=== PATIENT | female | born 1985 | race Caucasian/White ===

== ENCOUNTER 2016-09-13 08:01 | Emergency (ER) | payer BC ==
--- NOTE | 2016-09-13 08:18 | UC ---
[facility] HPI - History of Current Complaint Chief Complaint: UCRespiratory Stated Complaint: THROAT,ACHY,EAR COMPLAINT Hx Last Menstrual Period: 09/09/16 - Allergies/Home Medications Allergies/Adverse Reactions: Allergies Allergy/AdvReac Type Severity Reaction Status Date / Time No Known Allergies Allergy Verified 09/13/16 08:08 Home Medications: Home Medications Acetaminophen [Acetaminophen Extra Stren] 1,000 mg PO Q4H PRN 09/13/16 [History Confirmed 09/13/16] PMH/Surg Hx/FS Hx/Imm Hx - Surgical History Surgical History: None - Social History Alcohol Use: Occasionally Substance Use Type: None Smoking Status (MU): Never Smoked Tobacco Physical Exam Vital Signs: Initial Vital Signs Temp 99.1 F 09/13/16 08:09 Pulse 100 09/13/16 08:09 Resp 16 09/13/16 08:09 BP 101/60 09/13/16 08:09 Pulse Ox 100 09/13/16 08:09
[2016-09-13 08:23] VITALS: BP 101/60
--- NOTE | 2016-09-13 08:26 | UC ---
Throat Pain/Nasal Jose Cruz HPI - HPI Summary HPI Summary: 31 yo female with sore throat that started last PM some aches some MCGEE mild cough and PND no f/c - History of Current Complaint Chief Complaint: UCRespiratory Stated Complaint: THROAT,ACHY,EAR COMPLAINT Time Seen by Provider: 09/13/16 08:25 Hx Obtained From: Patient Hx Last Menstrual Period: 09/09/16 Onset/Duration: Gradual Onset Severity: Mild Pain Intensity: 4 Pain Scale Used: 0-10 Numeric Cough: Nonproductive Related History: Prior ENT Surgery - Epiglottits Risk Factors Epiglottis Risk Factors: Negative - Allergies/Home Medications Allergies/Adverse Reactions: Allergies Allergy/AdvReac Type Severity Reaction Status Date / Time No Known Allergies Allergy Verified 09/13/16 08:08 Home Medications: Home Medications Acetaminophen [Acetaminophen Extra Stren] 1,000 mg PO Q4H PRN 09/13/16 [History Confirmed 09/13/16] PMH/Surg Hx/FS Hx/Imm Hx Previously Healthy: Yes - Surgical History Surgical History: None - Family History Known Family History: Negative: Cardiac Disease, Hypertension, Diabetes - Social History Alcohol Use: Occasionally Substance Use Type: None Smoking Status (MU): Never Smoked Tobacco Review of Systems Constitutional: Fatigue Skin: Negative Eyes: Negative ENT: Sore Throat Respiratory: Negative Cardiovascular: Negative Gastrointestinal: Negative Genitourinary: Negative Motor: Negative Neurovascular: Negative Musculoskeletal: Negative Neurological: Negative Psychological: Negative All Other Systems Reviewed And Are Negative: Yes Physical Exam Triage Information Reviewed: Yes Appearance: Well-Appearing, No Pain Distress, Well-Nourished Vital Signs: Initial Vital Signs Temp 99.1 F 09/13/16 08:09 Pulse 100 09/13/16 08:09 Resp 16 09/13/16 08:09 BP 101/60 09/13/16 08:09 Pulse Ox 100 09/13/16 08:09 Vital Signs Reviewed: Yes Eyes: Positive: Conjunctiva Clear ENT: Positive: Hearing grossly normal, Pharyngeal erythema, TMs normal. Negative: Nasal congestion, Nasal drainage, Tonsillar swelling, Tonsillar exudate, Trismus, Muffled/hoarse voice Neck: Positive: Supple, Nontender, Enlarged Nodes @ - ant cervical mildly enlarged Respiratory: Positive: Lungs clear, Normal breath sounds, No respiratory distress Cardiovascular: Positive: RRR, No Murmur Abdomen Description: Positive: Nontender Musculoskeletal: Positive: ROM Intact, No Edema Neurological: Positive: Alert Psychological Exam: Normal Skin Exam: Normal Throat Pain/Nasal Course/Dx - Course Course Of Treatment: RS (-). declines work excuse - Differential Dx/Diagnosis Provider Diagnoses: acute pharyngitis Discharge - Discharge Plan Condition: Stable Disposition: HOME Patient Education Materials: Pharyngitis (ED) Referrals: Non Staff,Doctor [Primary Care Provider] - Additional Instructions: STREP test (-) fluids rest tylenol or advil if needed recheck in 2 days if not better
== END 2016-09-13 08:41 | disposition home or self-care (01) ==
LOC: UCCORT 08:01
DX: J02.9 Acute pharyngitis, unspecified (principal); R53.83 Other fatigue
CPT/HCPCS: 87651; 99211; G0463

== ENCOUNTER 2016-09-17 19:09 | Emergency (ER) | payer BC ==
[2016-09-17 19:16] VITALS: BP 114/79
[2016-09-17] MEDS ORDERED: Azithromycin TAB* 250 MG PO ONE (19:50)
[2016-09-17] MEDS ORDERED: Benzonatate CAP* 100 MG PO ONE (19:51)
--- NOTE | 2016-09-17 20:21 | UC ---
Throat Pain/Nasal Jose Cruz HPI - HPI Summary HPI Summary: SEEN IN [facility] 09/13/16. HAD SORE THROAT AND COUGH AT THE TIME, STREP TEST NEGATIVE. TODAY RIGHT EAR PAIN AND PRESSURE, COUGH WORSENING, SINUS CONGESTION WORSENING. FEVERISH AT NIGHT. - History of Current Complaint Chief Complaint: UCEar Stated Complaint: SORE THROAT,COUGHING Time Seen by Provider: 09/17/16 19:41 Hx Obtained From: Patient Hx Last Menstrual Period: 09/09/16 Onset/Duration: Gradual Onset, Lasting Weeks, Still Present Severity: Moderate Cough: Productive Associated Signs & Symptoms: Positive: Hoarseness, Sinus Discomfort, Nasal Discharge, Fever - Epiglottits Risk Factors Epiglottis Risk Factors: Negative - Allergies/Home Medications Allergies/Adverse Reactions: Allergies Allergy/AdvReac Type Severity Reaction Status Date / Time No Known Allergies Allergy Verified 09/17/16 19:16 Home Medications: Home Medications Pseudoephedrine-Guaifenesin [Mucinex D 60-600 mg] 1 tab PO DAILY PRN 09/17/16 [ History Confirmed 09/17/16] PMH/Surg Hx/FS Hx/Imm Hx Previously Healthy: Yes - Surgical History Surgical History: Yes Surgery Procedure, Year, and Place: adenoidectomy, ear tubes as kid - Family History Known Family History: Negative: Cardiac Disease, Hypertension, Diabetes - Social History Occupation: Employed Full-time Lives: With Family Alcohol Use: Occasionally Substance Use Type: None Smoking Status (MU): Never Smoked Tobacco Review of Systems Constitutional: Fatigue Skin: Negative Eyes: Negative ENT: Sore Throat, Ear Ache, Nasal Discharge, Sinus Congestion Respiratory: Cough Cardiovascular: Negative Gastrointestinal: Negative Genitourinary: Negative Motor: Negative Neurovascular: Negative Musculoskeletal: Negative Neurological: Negative Psychological: Negative All Other Systems Reviewed And Are Negative: Yes Physical Exam Triage Information Reviewed: Yes Appearance: No Pain Distress, Well-Nourished, Ill-Appearing - MILDLY Vital Signs: Initial Vital Signs Temp 98.8 F 09/17/16 19:12 Pulse 107 09/17/16 19:12 Resp 16 09/17/16 19:12 BP 114/79 09/17/16 19:12 Pulse Ox 99 09/17/16 19:12 Vital Signs Reviewed: Yes Eye Exam: Normal ENT Exam: Normal ENT: Positive: Normal ENT inspection, Pharyngeal erythema, Nasal congestion, TM dull, TM red Dental Exam: Normal Neck exam: Normal Neck: Positive: Supple, Nontender, Enlarged Nodes @ - ANTERIOR CERVICAL LN BILATERAL Respiratory Exam: Other - COUGH Respiratory: Positive: Chest non-tender, Lungs clear, Normal breath sounds, No respiratory distress, No accessory muscle use Cardiovascular Exam: Normal Cardiovascular: Positive: RRR, No Murmur, Pulses Normal Abdominal Exam: Normal Musculoskeletal Exam: Normal Musculoskeletal: Positive: Strength Intact, ROM Intact Neurological Exam: Normal Psychological Exam: Normal Skin Exam: Normal Throat Pain/Nasal Course/Dx - Differential Dx/Diagnosis Differential Diagnosis/HQI/PQRI: Pharyngitis, Sinusitis, Tonsillitis, URI Provider Diagnoses: SINUSITIS; TONSILLITIS; BRONCHITIS Discharge - Discharge Plan Condition: Stable Disposition: HOME Prescriptions: Azithromycin TAB* [Zithromax TAB (Z-DAVIDSON) 250 mg #6 tabs] 250 mg PO DAILY #4 tab Benzonatate CAP* [Tessalon 100 MG CAP*] 100 mg PO TID PRN #15 cap PRN Reason: Cough Patient Education Materials: Pharyngitis (ED), Sinusitis (ED), Acute Bronchitis (ED) Referrals: [facility] [place] PH[facility]IAN REFERRAL [Outside] Non Staff,Doctor [Primary Care Provider] -
== END 2016-09-17 20:00 | disposition home or self-care (01) ==
LOC: UCEAST 19:09
DX: J32.9 Chronic sinusitis, unspecified (principal); J03.90 Acute tonsillitis, unspecified; J40 Bronchitis, not specified as acute or chronic
CPT/HCPCS: 99212; A9270-GY; G0463

== ENCOUNTER 2017-07-02 08:49 | Inpatient (IN) | payer BC ==
[2017-07-02 10:30] LABS: Hematocrit 37 % (35-47); Hemoglobin 12.6 g/dl (12.0-16.0); Mean Corpuscular HGB Conc 34 g/dl (31-36); Mean Corpuscular Hemoglobin 29 pg (27-31); Mean Corpuscular Volume 84 fL (80-97); Mean Platelet Volume 10.3 um3 (7.4-10.4); Platelet Count 170 10^3/ul (150-450); Red Blood Count 4.41 10^6/ul (4.0-5.4); Red Cell Distribution Width 13 % (10.5-15); White Blood Count 12.8 10^3/ul (3.5-10.8)
--- NOTE | 2017-07-02 12:22 | HP ---
General Information - General Information Maternal Age: 32 Grav: 2 Para: 1 SAB: 0 IEA: 0 Estimated Due Date: 07/10/17 Determined By: LMP Gestational Age in Weeks and Days: 38 Weeks and 6 Days Maternal Blood Type and Rh: A Positive - Results this Serology/RPR Result: Non-Reactive Rubella Result: Immune HBsAg Result: Negative HIV Result: Negative GBS Culture Result: Negative Past Medical History Delivery History: Hx Uncomplicated Vaginal Delivery Pertinent Past Medical History: See Records - Hx depression, anxiety Pertinent Past Surgical History: See Records - Vestibulectomy 2014 - Antepartal Records Antepartal Records: Reviewed, Uncomplicated Review of Systems Constitutional: Uncomfortable CV Complaint: No Respiratory: Shortness of Breath: No Genitourinary: No Dysuria, No Bleeding, No Leaking Fluid Musculoskeletal: Contractions Neurological: No Headache, No Visual Changes Movement: Decreased Exam Allergies/Adverse Reactions: Allergies No Known Allergies Allergy (Verified 09/17/16 19:16) T 98.4; BP 134/74, P 82, R 18 Lab Values - Entire Visit: Laboratory Tests 07/02/17 07/02/17 10:16 10:16 WBC 12.8 H RBC 4.41 Hgb 12.6 Hct 37 MCV 84 MCH 29 MCHC 34 RDW 13 Plt Count 170 MPV 10.3 Blood Type A Positive Antibody Screen Negative - Measurements Height: 5 ft 2 in Weight: 137 lb Weight in lbs: 137 Body Mass Index (BMI): 25.0 Pre- Weight: 106 lb Weight Gained This : 31 lbs and 0 ozs - Exam Abdomen: No Upper Quadrant Pain Breast: Breast Exam Deferred CVA: No CVA Tenderness Extremities: No Edema Heart: Normal Rhythm/Heart Sounds HEENT: No Significant Findings Lungs: Clear Bilaterally Rectal: Rectal Exam Deferred Thyroid: No Thyromegaly - Ultrasound/Biophysical Profile Ultrasound Status: Not Done Targeted Exam Findings See L&D Outpatient Visit Provider Note for Findings: N/A Cervical Exam: 4cm Effacement: 100% Station: 0 Presenting Part: Vertex Membrane Status: Intact Bleeding/Discharge: None EFM Findings - External Monitor Findings Baseline Heart Rate: 130 External Monitor Findings: Accelerations Present, No Pattern of Variable or Late Decelerations, Variability Moderate Contractions: Regular, Moderate, 45-90 Seconds Assessment/Plan - Reason for Visit Reason for Visit: Labor evaluation - Plan Plan: Observe, Early Labor, Active Labor, IV Hydration - Date/Time of Admission Date of Admission: 07/02/17 Time of Admission: 12:27
[2017-07-02] MEDS ORDERED: Ibuprofen TAB* 600 MG ONE (13:54)
[2017-07-02] MEDS ORDERED: Witch Hazel PAD* JAR TOPICAL PRN (14:25)
[2017-07-02] MEDS ORDERED: Dibucaine 1% 28.35 GM TUBE PR PRN (14:25)
[2017-07-02] MEDS: Acetaminophen TAB* 325 MG PO PRN (18:02)
[2017-07-02] MEDS: Ibuprofen TAB* 600 MG PO PRN (21:13)
[2017-07-02] MEDS: Docusate CAP* 100 MG PO SCH (21:13)
[2017-07-03] MEDS: Acetaminophen TAB* 325 MG PO PRN (01:44)
[2017-07-03 06:29] LABS: ABS Basophils 0.1 10^3/ul (0-0.2); ABS Eosinophils 0.1 10^3/ul (0-0.6); ABS Lymphocytes 1.5 10^3/ul (1.0-4.8); ABS Neutrophils 10.3 10^3/ul (1.5-7.7); ABS Nucleated RBC 0 10^3/ul; Eosinophil % 0.5 % (0-6); Hematocrit 37 % (35-47); Hemoglobin 12.6 g/dl (12.0-16.0); Lymphocyte % 11.8 % (25-47); Mean Corpuscular HGB Conc 34 g/dl (31-36); Mean Corpuscular Hemoglobin 29 pg (27-31); Mean Corpuscular Volume 84 fL (80-97); Mean Platelet Volume 10.1 um3 (7.4-10.4); Nucleated Red Blood Cells % 0.1; Platelet Count 145 10^3/ul (150-450); Red Blood Count 4.33 10^6/ul (4.0-5.4); Red Cell Distribution Width 13 % (10.5-15); White Blood Count 12.9 10^3/ul (3.5-10.8)
[2017-07-03] MEDS: Ibuprofen TAB* 600 MG PO PRN ×2 (08:18→16:14)
[2017-07-03] MEDS: Docusate CAP* 100 MG PO SCH ×3 (08:19→20:23)
[2017-07-03] MEDS ORDERED: Ferrous Gluconate TAB* 324 MG TAB PO SCH (09:00)
[2017-07-04 07:57] VITALS: BP 120/83
[2017-07-04] MEDS: Ibuprofen TAB* 600 MG PO PRN (08:58)
[2017-07-04] MEDS: Docusate CAP* 100 MG PO SCH (08:58)
== END 2017-07-04 11:44 | disposition home or self-care (01) | DRG 560 ==
LOC: MCHOBOUT 08:49 → MCHOB 10:22
PROVIDERS: ADMIT Midwife; ATTEND Midwife
PROC: 10E0XZZ Delivery of Products of Conception, External Approach (ICD-10-PCS; principal; 2017-07-02)
PROC: 4A1HX4Z Monitoring of Products of Conception, Cardiac Electrical Activity, External Approach (ICD-10-PCS; 2017-07-02)
DX: O71.89 Other specified obstetric trauma (principal); O92.29 Other disorders of breast associated with pregnancy and the puerperium; Z86.69 Personal history of other diseases of the nervous system and sense organs; Z37.0 Single live birth; Z3A.38 38 weeks gestation of pregnancy
CPT/HCPCS: 36415; 85025; 85027; 86850; 86900; 86901; A9270-GY

== ENCOUNTER 2018-06-30 15:22 | Emergency (ER) | payer BC ==
--- NOTE | 2018-06-30 17:20 | ED ---
Abdominal Pain/Female - HPI Summary HPI Summary: This patient is a 33 year old female presenting to [facility] with a chief complaint of abdominal pain. She reports nausea, and vomiting, states she could be as her LMP was over one month ago. She reports nausea. Patient states it hurts when she coughs and with bowel movement. Also painful with walking. She rates her pain 6/10 in severity. - History of Current Complaint Chief Complaint: EDAbdPain Stated Complaint: "ABDOMINAL PAIN/NAUSEA PER PT" Hx Obtained From: Patient Hx Last Menstrual Period: 09/09/16 Severity Initially: Moderate Severity Currently: Moderate Pain Intensity: 6 Pain Scale Used: 0-10 Numeric Location: Discrete At: RLQ, Discrete At: LLQ Radiates: No Allergies/Adverse Reactions: Allergies Allergy/AdvReac Type Severity Reaction Status Date / Time No Known Allergies Allergy Verified 06/30/18 15:27 PMH/Surg Hx/FS Hx/Imm Hx Respiratory History: Reports: Hx Asthma Psychiatric History: Reports: Hx Depression - Surgical History Surgery Procedure, Year, and Place: adenoidectomy, ear tubes as kid Infectious Disease History: No Infectious Disease History: Denies: Traveled Outside the [place] in Last 30 Days - Family History Known Family History: Negative: Cardiac Disease, Hypertension, Diabetes - Social History Alcohol Use: None Alcohol Amount: occasionally prior to Substance Use Type: Reports: None Smoking Status (MU): Never Smoked Tobacco Review of Systems Negative: Fever Positive: Abdominal Pain, Nausea All Other Systems Reviewed And Are Negative: Yes Physical Exam - Summary Physical Exam Summary: VITAL SIGNS: Reviewed. GENERAL: Patient is a well-developed and nourished FEMALE who is lying comfortable in the stretcher. Patient is not in any acute respiratory distress. HEAD AND FACE: No signs of trauma. No ecchymosis, hematomas or skull depressions. No sinus tenderness. EYES: PERRLA, EOMI x 2, No injected conjunctiva, no nystagmus. EARS: Hearing grossly intact. Ear canals and tympanic membranes are within normal limits. MOUTH: Oropharynx within normal limits. NECK: Supple, trachea is midline, no adenopathy, no JVD, no carotid bruit, no c- spine tenderness, neck with full ROM. CHEST: Symmetric, no tenderness at palpation LUNGS: Clear to auscultation bilaterally. No wheezing or crackles. CVS: Regular rate and rhythm, S1 and S2 present, no murmurs or gallops appreciated. ABDOMEN: Soft, Lower abdominal tenderness. No signs of distention. No rebound no guarding, and no masses palpated. Bowel sounds are normal. EXTREMITIES: FROM in all major joints, no edema, no cyanosis or clubbing. NEURO: Alert and oriented x 3. No acute neurological deficits. Speech is normal and follows commands. SKIN: Dry and warm Triage Information Reviewed: Yes Vital Signs On Initial Exam: Initial Vitals Temp Pulse Resp BP Pulse Ox 98.6 F 109 14 116/66 99 06/30/18 15:27 06/30/18 15:27 06/30/18 15:27 06/30/18 15:27 06/30/18 15:27 Vital Signs Reviewed: Yes Diagnostics - Vital Signs Vital Signs Temp Pulse Resp BP Pulse Ox 06/30/18 15:27 98.6 F 109 14 116/66 99 - Laboratory Result Diagrams: 06/30/18 17:41 06/30/18 17:41 Lab Statement: Any lab studies that have been ordered have been reviewed, and results considered in the medical decision making process. - CT Abd/Pel CT Interpretation Completed By: Radiologist Summary of CT Findings: 1. There are at least 2 dominant cysts in the right adnexal region measuring 5.0 and 2.5 cm. 2. Constipation. 3. No evidence of obstructive uropathy or appendicitis. ED Provider has reviewed this report. Re-Evaluation - Re-Evaluation First Eval Re-Evaluation Time: 21:16 Change: Improved Comment: Discussed results and plan for discharge with patient. Patient states pain has resolved. Abdominal Pain Fem Course/Dx - Course Course Of Treatment: This patient is a 33-year-old female who presents to the emergency department with a chief complaint of having lower abdominal pain. The patient reports that shes been having this pain for the last couple days. The patient denies any nausea vomiting she denies any diarrhea or constipation. The pain is dull constant approximately 6 of 10. The patient also reports that she is late her menstrual cycle and she doesnt know if she is . Patient denies any past medical history of surgical history. In the ED course the patient is stable. We are obtained an IV access and she was given IV fluids. Blood test results shows wbcs of 17.2, glucose of 125, CRP of 20.5, lipase less than 10. Urinalysis shows at the posterior leukocytes in the bases of 3+ RBCs of 1 positive squamous epithelial cells. Abdominal and pelvic CT IMPRESSION: 1. There are at least 2 dominant cysts in the right adnexal region measuring. 5.0 and 2.5 cm. 2. Constipation. 3. No evidence of obstructive uropathy or appendicitis. After medications the patients symptoms have significantly improved. The urinalysis contaminated therefore I will send that for culture and is a infection we will call her with the findings. Patient declined pelvic exam. . I discussed all the findings and test results with the patient. Patient was instructed to return to the emergency room immediately if any of the symptoms return worsens. Plan of care was discussed with the patient and understands and agrees. All questions were answered at patient satisfaction. There were no further complaints or concerns. Lung exam before discharge: CTA B/L. Good air exchange. No wheezing or crackles heard. CVS: S1 and S2 present. No murmurs appreciated. Patient is alert and oriented x 3. Patient is hemodynamically stable. Patient will be discharged home with follow up PCP in the next 2-3 days - Diagnoses Provider Diagnoses: Ovarian cyst, Lower abdominal pain Discharge - Sign-Out/Discharge Documenting (check all that apply): Patient Departure - Discharge Patient Received Moderate/Deep Sedation with Procedure: No - Discharge Plan Condition: Stable Disposition: HOME Prescriptions: Naproxen [Naproxen 500 mg tab] 500 mg PO BID PRN #20 tablet.dr GALEANO Reason: Pain Patient Education Materials: Ovarian Cyst (ED), Abdominal Pain (ED) Referrals: Lizzie Land MD [Primary Care Provider] - 3 Days Additional Instructions: Return to ED with any new or worsening symptoms. - Attestation Statements Document Initiated by Scribe: Yes Documenting Scribe: Ede Key Provider For Whom Scribe is Documenting (Include Credential): Adan Soriano MD Scribe Attestation: IEde, scribed for Adan Soriano MD on 06/30/18 at [id number]. Status of Scribe Document: Ready
[2018-06-30 17:48] LABS: ABS Eosinophils 0.1 10^3/ul (0-0.6); ABS Neutrophils 15.2 10^3/ul (1.5-7.7); Eosinophil % 0.4 %; Hematocrit 40 % (35-47); Hemoglobin 13.3 g/dL (12.0-16.0); Lymphocyte % 5.8 %; Mean Corpuscular HGB Conc 33 g/dL (31-36); Mean Corpuscular Hemoglobin 28 pg (27-31); Mean Corpuscular Volume 85 fL (80-97); Mean Platelet Volume 9.1 fL (7.4-10.4); Platelet Count 204 10^3/uL (150-450); Red Blood Count 4.74 10^6 /uL (3.70-4.87); Red Cell Distribution Width 13 % (10.5-15); White Blood Count 17.2 10^3/uL (3.5-10.8)
[2018-06-30 18:03] LABS: Urine Appearance Cloudy; Urine Bacteria Absent (Absent); Urine Bilirubin Negative (Negative); Urine Blood Negative (Negative); Urine Color Yellow; Urine Glucose Negative (Negative); Urine Ketones Negative (Negative); Urine Nitrite Negative (Negative); Urine Protein Negative (Negative); Urine Red Blood Cell 1+(3-5/hpf) (Absent); Urine Specific Gravity 1.014 (1.010-1.030); Urine Squamous Epithelial Cell Present (Absent); Urine Urobilinogen Negative (Negative); Urine White Blood Cell 3+(>20/hpf) (Absent)
[2018-06-30 18:05] LABS: ALT 13 U/L (7-52); AST 14 U/L (13-39); Albumin 4.7 g/dL (3.2-5.2); Alkaline Phosphatase 43 U/L (34-104); Anion Gap 6 mmol/L (2-11); BUN/Creatinine Ratio 20.3 (8-20); Blood Urea Nitrogen 12 mg/dL (6-24); C Reactive Protein 20.58 mg/L (<8.01); CO2 Carbon Dioxide 26 mmol/L (22-32); Calcium 9.4 mg/dL (8.6-10.3); Chloride 105 mmol/L (101-111); EGFR African American 140.4 (>60); Globulin 2.3 g/dL (2-4); Glucose 125 mg/dL (70-100); Potassium 3.8 mmol/L (3.5-5.0); Sodium 137 mmol/L (135-145)
[2018-06-30 18:11] LABS: HCG Pregnancy 0.62 mIU/mL
[2018-06-30] MEDS ORDERED: NS 0.9% 1000 ML** 1,000 ML IV ONE (18:57)
[2018-06-30] MEDS ORDERED: Iohexol 300* (CONTRAST) 10 ML SDV IV ONE (19:03)
[2018-06-30 22:10] VITALS: BP 104/66
== END 2018-06-30 22:10 | disposition home or self-care (01) ==
LOC: ED 15:22
DX: N83.209 Unspecified ovarian cyst, unspecified side (principal)
CPT/HCPCS: 36415; 74177; 80053; 81003; 81015; 83605; 83690; 84702; 85025; 86140; 87086; 99282; 99283; Q9967

== ENCOUNTER 2018-07-20 21:26 | Emergency (ER) | payer BC ==
--- OUTSIDE RECORDS SUMMARY | 2018-07-20 21:30 | XMS REPORT | Continuity of Care Document ---
:1985 External Reference #:[id number] Author Name Ari Oleary MD Address [address] [place] [address] Care Team Providers Name Role Phone Lizzie Land MD. Primary Care Physician Unavailable Payers Date Identification Numbers Payment Provider Subscriber Policy Number: [id number] [employer] Bola Mathis PayID: [id number] [address] [address] [place] [address] Advance Directives Description No Information Available Problems Resolved Problems Provider Date Multigravida Santino Michel CNM Onset: 12/15/2016 Resolved: 07/02/2017 Family History Date Family Member(s) Observation Comments General Hx of Breast Cancer in extended family Father Heart Surgery Father Allergies, Environmental Father Seasonal Allergies Father cataract surgery Mother Asthma Mother Allergies, Environmental Mother Seasonal Allergies Mother cataract surgery First Son A&W First Daughter A&W First Brother A&W First Sister Digestive problems Second Sister Digestive problems Paternal Grandfather due to Cancer () Paternal Grandmother due to Congestive Heart Failure () Maternal Grandfather due to Asphyxiation () Maternal Grandmother due to Lung Cancer () Social History Type Date Description Comments Sex Unknown Education Highest level completed, Doctorate Marital Status Lives With Lives With Son Lives With Daughter Diet Healthy, Well Balanced Pets None Occupation Psychologist Tobacco Use Start: Unknown Never Smoked Cigarettes Smoking Status Reviewed: 07/02/18 Never Smoked Cigarettes ETOH Use Occasionally consumes alcohol Tobacco Use Start: Unknown Patient has never smoked Recreational Drug Use Denies Drug Use Exercise Type/Frequency Exercises sporadically Seat Belt/Car Seat Always uses seat belt Currently Active Patient is currently sexually active Contraceptive Methods Current methods include oral contraceptives STD's No STD History Allergies, Adverse Reactions, Alerts Description No Known Drug Allergies Medications Active Medications SIG Qnty Indications Ordering Provider Date Deblitane take one tablet 84tabs Kathryn Mckenzie, [facility] 03/30/2018 0.35mg by mouth every Tablets day Gummies/Dha 1 by mouth every 90units Santino Michel, [facility] 2016 & Folic Acid day 0.4-32.5mg Chewtabs History Medications Renate one by mouth each 84tabs Leora Jump, 08/08/2017 - 0.35mg Tablets day, ok to use [facility] 03/30/2018 generic Priscilla 1 by mouth every 84tabs Leora Jump, 04/10/2016 - 3-0.02mg Tablets day [facility] 12/15/2016 Metrogel-Vaginal 1 applicator every 1TX Leora Jump, 04/10/2016 - 0.75% night at bedtime x [facility] 04/15/2016 Gel 5 days Seasonique 1 by mouth every 91tabs Leora Jump, 01/27/2016 - day [facility] 04/10/2016 0.15-0.03&0.01mg Tablets Norethindrone 1 by mouth every Leora Jump, - 0.35mg day [facility] 01/27/2016 Tablets Vitamin Unknown - 12/15/2016 Medications Administered in Office Medication SIG Qnty Indications Ordering Provider Date PT SCRN Tbco Id as Non User Ari Oleary MD 07/02/2018 Injection No PT Tbco SCRN RNG [facility], [facility] 03/21/2018 Injection PT SCRN Tbco Id as Non User [facility] 03/21/2018 Injection Immunizations CPT Code Status Date Vaccine Lot # [id number] Given 05/07/2017 Tetnus, Diptheria Toxoids And Acellular Pertussis, [id number] PT > 7Yrs Old [id number] Given 01/16/2017 Influenza Vaccine Quadrivalent Preser/Antibiotic [id number] Free Im Use Vital Signs Date Vital Result Comment 07/02/2018 9:39am BP Systolic 102 mmHg BP Diastolic 66 mmHg Height 62 inches 5'2" Weight 118.00 lb BMI (Body Mass Index) 21.6 kg/m2 Last Menstrual Period 2590219 2 Parity 2 03/21/2018 9:16am BP Systolic 104 mmHg BP Diastolic 66 mmHg Height 62 inches 5'2" Weight 118.00 lb BMI (Body Mass Index) 21.6 kg/m2 Last Menstrual Period 9749768 2 Parity 2 08/08/2017 12:57pm BP Systolic 108 mmHg BP Diastolic 66 mmHg Height 62 inches 5'2" Weight 123.00 lb BMI (Body Mass Index) 22.5 kg/m2 Last Menstrual Period 0440061 2 Parity 2 12/15/2016 1:50pm BP Systolic 106 mmHg BP Diastolic 56 mmHg Height 62 inches 5'2" Weight 115.00 lb BMI (Body Mass Index) 21.0 kg/m2 Last Menstrual Period 6968319 2 Parity 1 11/13/2016 11:19am BP Systolic 104 mmHg BP Diastolic 62 mmHg Height 62 inches 5'2" Weight 116.00 lb BMI (Body Mass Index) 21.2 kg/m2 Last Menstrual Period 2805041 1 04/10/2016 9:02am BP Systolic 100 mmHg BP Diastolic 72 mmHg Height 62 inches 5'2" Weight 116.00 lb BMI (Body Mass Index) 21.2 kg/m2 Last Menstrual Period 4594009 1 Parity 1 12/30/2015 9:03am BP Systolic 110 mmHg BP Diastolic 60 mmHg Height 62 inches 5'2" Weight 117.00 lb BMI (Body Mass Index) 21.4 kg/m2 Last Menstrual Period 9154282 1 Parity 1 Results Test Date Facility Test Result H/L Range Note Laboratory test 08/08/2017 [facility] Gardnerella/Ye SEE RESULT [address] [place] [address] ast: Vaginal BELOW [phone] Dna Laboratory test 06/14/2017 [facility] Genital For SEE RESULT [address] [place] [address] GRP B Strep BELOW [phone] Only Rapid Influenza 04/05/2017 [facility] Influenza A NEGATIVE Negative 3 A & [place] [address] Molecular [phone] Influenza B Molecular NEGATIVE Negative Laboratory test 04/05/2017 [facility] Glucose 1 HR 103 mg/dL N 70-160 [address] [place] [address] Post Prandial [phone] CBC With No Diff 04/05/2017 [facility] White Blood 9.0 10^3/uL N 3.5-10.8 [place] [address] Count [phone] Red Blood Count 4.06 10^6/uL N 4.0-5.4 Hemoglobin 11.9 g/dL Low 12.0-16.0 Hematocrit 34 % Low 35-47 Mean Corpuscular Volume 85 fL N 80-97 Mean Corpuscular Hemoglobin 29 pg N 27-31 Mean Corpuscular HGB Conc 35 g/dL N 31-36 Red Cell Distribution Width 14 % N 10.5-15 Platelet Count 185 10^3/uL N 150-450 Mean Platelet Volume 10 um3 N 7.4-10.4 Laboratory test 04/05/2017 [facility] Influenza A & B SEE RESULT [address] [place] [address] Request BELOW [phone] Maternal Serum 01/16/2017 [facility] KVNG Interpretation SEE NOTE 6 Afp Risk For NTD (Osb) LESS THAN 1:5000 7 Afp,Serum 18.6 NG/ML Adjusted Mom 0.55 8 Comment SEE NOTE 9 Date Of 1985 TIMOTEO 07/10/2017 TIMOTEO Determined By LMP Gestational Age 15.0 WEEKS Weight 115 LBS Race =W Insulin Dependent Diabetic NO Cigarette Smoker NOT PROVIDED Repeat Sample NO Number Of Fetuses 1 History Of NTD NO Date Of Draw 01/16/2017 [employer] SEE NOTE 10 GC/Chlamydia Dna 01/16/2017 [facility] Chlamydia [place] [address] trachomatis Rna [phone] Neisseria gonorrhoeae (GC) Rna Negative Negative Qnatal(TM) Advanced 12/29/2016 [facility] Number Of Fetuses? 1 Advanced Maternal Age? NO Abnormal KVNG? NO Abnormal US? NO Personal/Fam History? NO Interpretation SEE BELOW 11 Trisomy 21 (T21) Negative Trisomy 18 (T18) Negative Trisomy 13 (T13) Negative Y Chromosome Not detected Y CHR. Interpretation SEE BELOW 12 Sex Chromosome No aneuploidy Sex Chromosome Interp SEE BELOW 13 Microdeletion Not detected Microdeletion Interp SEE BELOW 14 Gestational Age (In Weeks) 12 Gestational Age (In Days) 3 Fraction 8.69% Laboratory Comments SEE BELOW 15 Limitations SEE BELOW 16 Specifications SEE BELOW 17 Methodology SEE BELOW 18 Parvovirus B19 12/29/2016 [facility] Parvovirus Positive N Negative [place] [address] (B19) IgG [phone] Antibody Parvovirus (B19) IgM Antibody Negative N Negative Parvovirus Interpretation See Comment N 19 Lead 12/29/2016 [facility] Lead <1.0 g/dL N 0.0-4.9 [address] [place] [address] [phone] Submitting Laboratory N 21 HIV 1/2 AB 12/29/2016 [facility] HIV 1 2 Nonreactive N Nonreactive [address] [place] [address] Antibody [phone] Type And 12/29/2016 [facility] Patient [place] [address] Blood Type [phone] Antibody Screen NEGATIVE N CBC With No 12/29/2016 [facility] White Blood 7.3 10^3/uL N 3.5-10.8 [place] [address] Count [phone] Red Blood Count 4.38 10^6/uL N 4.0-5.4 Hemoglobin 12.3 g/dL N 12.0-16.0 Hematocrit 36 % N 35-47 Mean Corpuscular Volume 83 fL N 80-97 Mean Corpuscular Hemoglobin 28 pg N 27-31 Mean Corpuscular HGB Conc 34 g/dL N 31-36 Red Cell Distribution Width 13 % N 10.5-15 Platelet Count 222 10^3/uL N 150-450 Mean Platelet Volume 10 um3 N 7.4-10.4 PNL No 12/29/2016 [facility] Rubella Screen Immune IU/ mL N Immune 23 [place] [address] [phone] Hemoglobin A1c 5.0 % N 4.0-5.6 24 Hepatitis B Surface Ag Nonreactive N Nonreactive 25 Syphillis Igg W/Reflex RPR Nonreactive N Nonreactive 26 Urine Culture And 12/15/2016 [facility] Urine Culture SEE RESULT 27 [place] [address] BELOW [phone] Urine Culture And 11/13/2016 [facility] Urine Culture SEE RESULT 28 [place] [address] BELOW [phone] Laboratory test 04/10/2016 [facility] Cytology SEE RESULT [address] [place] [address] BELOW [phone] Human Papilloma Virus Rna Negative N Negative 30 1 SEE RESULT BELOW Name: MULUGETA WEAVER : [address]: Nadia Ren CM Acct: [id number] Unit: [id number] AGE: 32 Location: [facility] Re08/08/17 SEX: F Status: REG REF SPEC: [id number] JENNIEFR: 08/08/17-[address]: Nadia Ren CM REQ: [id number] RECD: 08/08/175039 STATUS: COMP _ SOURCE: VAGINAL SPDESC: ORDERED: Zuhair,Yeast DNA COMMENTS: [id number] Would you like to order Trichomonas Vaginalis testing? N Procedure Result Reported Site Gardnerella/Yeast: Vaginal DNA Final 08/09/17- 1311 ML Organism 1 Negative Kaitlynn Organism 2 Negative Gardnerella The presence of G. vaginalis, although suggestive, is not diagnostic for bacterial vaginosis. Results should be interpreted in conjuction with other clinical and laboratory data available. Women with vaginal discharge should be evaluated for risk factors of cervicitis and pelvic inflammatory disease, toxic shock syndrome (S.aureus), and if present, evaluated for organisms not included in this assay such as N. gonorrhoeae, C. trachomatis, Mobiluncus, Mycoplasma and/or Prevotella. Mixed infections may occur. The performance of this test on patient specimens collected during or immediately after antimicrobial therapy is unknown. The presence or absence of Kaitlynn species, or G. vaginalis cannot be used as a test for therapeutic success or failure. * ML - Main Lab . END OF REPORT DEPARTMENT OF PATHOLOGY, [address] [place] [address] Fito Mott M.D. Director [facility] # [id number] 2 SEE RESULT BELOW Name: JOHNMULUGETA SWAIN : [address]: Ari Oleary MD Acct: [id number] Unit: [id number] AGE: 32 [facility] Re06[facility]14[facility]17 SEX: F Status: REG REF SPEC: [id number] JENNIFER: 06/14/17-[address] [facility] [address]: Ari Oleary MD REQ: [id number] RECD: 06/14/17 STATUS: COMP _ SOURCE: RENARD/JENNIFER/RE SPDESC: ORDERED: Nalini Novoa COMMENTS: [id number] QUERIES: Is Patient Penicillin Allergic? N Is patient penicillin allergic and/or sensitivities needed? N Provider Requisition # [id number]_ Procedure Result Reported Site Group B Strep Culture Screen Final 06/16/17- 1258 ML Group B Strep Screen Negative * - [facility] . END OF REPORT DEPARTMENT OF PATHOLOGY, [address] [place] [address] Fito Mott M.D. Director [facility] # [id number] 3 Die Tripper: [id number] 5 SEE RESULT BELOW Name: OWENMULUGETA : [address]: Crys Dan MD Acct: [id number] Unit: [id number] AGE: 31 Location: [facility] Re04/05/17 SEX: F Status: REG REF SPEC: [id number] JENNIFER: 04/05/17-[address] [facility] [address]: Crys Dan MD REQ: [id number] RECD: 04/05/17-7758 STATUS: COMP _ SOURCE: [facility]: ORDERED: Mariluz Ceron Request COMMENTS: [id number] Procedure Result Reported Site Rapid Influenza A B Request Final 04/05/17- 1721 ML Specimen received for Influenza A/B Molecular testing * ML - MAIN LAB ([facility]) . END OF REPORT * ML=Testing performed at Main Lab DEPARTMENT OF PATHOLOGY, [address] [place] [address] Fito Mott M.D. Director [facility] # [id number] 6 SCREEN NEGATIVE FOR OPEN NTD. 7 LESS THAN 1:5000 8 ADJUSTED AFP MOM INTERPRETIVE CUTOFFS: <2.50 ADJUSTED MOM <1.90 ADJUSTED MOM FOR INSULIN-DEPENDENT DIABETES <4.00 ADJUSTED MOM FOR TWINS <3.50 ADJUSTED MOM FOR TWINS INSULIN-DEPENDENT DIABETES <4.50 ADJUSTED MOM FOR TRIPLETS <4.00 ADJUSTED MOM FOR TRIPLETS INSULIN-DEPENDENT DIABETES 9 PERFORMANCE OF MATERNAL AFP PROVIDES A USEFUL SCREENING TEST FOR DETECTION OF OPEN NEURAL TUBE DEFECT. THE SINGLE AFP MARKER IS NOT RECOMMENDED FOR DOWN SYNDROME AND OTHER CHROMOSOMAL ABNORMALITIES SCREENING. MUCH GREATER SENSITIVITY IS ACHIEVED WITH MULTIPLE MARKERS, SUCH AFP, HCG, UNCONJUGATED ESTRIOL, AND/OR DIMERIC INHIBIN A, RECOMMENDED BY THE [employer]. IT SHOULD BE NOTED THAT NORMAL TEST RESULTS CAN NEVER GUARANTEE THE OF A NORMAL BABY AND THAT 2-3% OF [place] HAVE SOME TYPE OF PHYSICAL OR MENTAL DEFECT, MANY OF WHICH ARE UNDETECTABLE THROUGH ANY KNOWN DIAGNOSTIC TECHNIQUE. THIS IS A SCREENING TEST, NOT A DIAGNOSTIC TEST. THIS RISK ASSESSMENT REPORT IS BASED IN PART ON DEMOGRAPHIC DATA PROVIDED BY THE ORDERING PHYSICIAN. PLEASE NOTIFY THE LAB PROMPTLY IF ANY DATA IS INCORRECT. FOR ASSISTANCE WITH RECALCULATIONS, PLEASE CALL YOUR LOCAL [facility] AT . FOR ASSISTANCE WITH INTERPRETATION OF THESE RESULTS, PLEASE CALL [phone]. 10 --- Reviewed by: Iker Moulton MD 11 This specimen showed expected representation of chromosome 21, 18, and 13 material. 12 Consistent with a female fetus. 13 No apparent abnormality was detected. See "Limitations" below. 14 No apparent abnormality was detected. See "Limitations" below. 15 Laboratory results and submitted clinical information reviewed by Nba Turcios MD, [facility], [facility]. 16 This test has been validated on women with a irwin that is >=10 weeks gestational age. As such, the accuracy of this test for specimens drawn at less than 10 weeks gestation is unknown. In addition, there are limited data available for the performance of this test in multiple gestation pregnancies and for the detection of microdeletions. Specimens are analyzed for aneuploidies involving chromosomes 21, 18, 13, X, and Y, and microdeletions of the specified regions only. The Y chromosome is analyzed for the determination of sex, and the sensitivity and specificity of this analysis may be less than that of the autosome analysis. Sex chromosome aneuploidy analysis is not performed for multiple gestation pregnancies. Aneuploidies involving chromosomes other than those specified above or abnormalities involving chromosomal regions other than those specified are not included in this testing. While the results of this test are highly accurate, not all of the chromosome abnormalities interrogated may be detected due to maternal, placental, or mosaicism, or other unexplained causes. The accuracy of the test results may also be affected by the presence of chromosome abnormalities or copy number variations that are maternal in origin, or by vanishing twin syndrome in a multiple gestation . Circulating cell-free DNA screening does not replace the precision of diagnosis using chorionic villus sampling or amniocentesis. It does not assess the risk of anomalies such as neural tube defects or ventral wall defects, and should not be considered in isolation from other clinical findings and laboratory test results. Management decisions, including termination, should not be based solely on the results of cell-free DNA screening. A negative test result does not ensure an unaffected . The healthcare provider is responsible for the use of this information in the management of his/her patient. Health care providers, please contact your local [facility] genetic counselor or call [employer] [facility] at [employer] ([phone]) for assistance with interpretation of these results. 17 Sensitivity Specificity T21 >99.9% >99.9% T18 >99.9% >99.9% T13 >99.9% >99.9% Accuracy Y >99.9% Performance of the [employer] laboratory-developed test (LDT) has been determined based on internal analytical assessment. 18 Circulating cell-free (cf) DNA was isolated from plasma. It was then detected on a massively parallel sequencing platform. Bioinformatic analysis was performed to determine the representation of DNA in the specimen, especially material from chromosomes 21, 18, and 13. The representation of other material, including the sex chromosomes (X and Y) and select chromosomal regions (22q, 15q, 11q, 8q, 5p, 4p 1p), was also evaluated and will only be reported as "Additional Chromosome Results" when an abnormality is detected. This test was developed and its performance characteristics have been determined by [facility]. It has not been cleared or approved by the U.S. Food and Drug Administration. The FDA has determined that such clearance or approval is not necessary. Performance characteristics refer to the analytical performance of the test. This test is performed pursuant to a license agreement with [facility]. This test was developed and its analytical performance characteristics have been determined by [facility]. It has not been cleared or approved by FDA. This assay has been validated pursuant to the CLIA regulations and is used for clinical purposes. 19 RESULT: Results suggest past infection. ADDITIONAL INFORMATION This test has been modified from the maintenance mechanic engine's instructions. Its performance characteristics were determined by [facility] in a manner consistent with CLIA requirements. This test has not been cleared or approved by the U.S. Food and Drug Administration. Test Performed by: [facility] [place] [id number] 20 ADDITIONAL INFORMATION Testing performed by Inductively Coupled Plasma-Mass Spectrometry (ICP-MS). This test was developed and its performance characteristics determined by [facility] in a manner consistent with CLIA requirements. This test has not been cleared or approved by the U.S. Food and Drug Administration. 21 Test Performed by: [facility] [address] [address] 22 It is recognized that currently available assays for the detection of antibodies to HIV-1 and/or HIV-2 may not detect all infected individuals. HIV antibodies may be undetectable in some stages of the infection and in some clinical conditions. The performance of this assay has not been established for populations of infants or children. Assayed by Chemiluminescence Microparticle Immunoassay on the Siemens Advia Centaur CP. Values obtained with different methods or kits cannot be used interchangeably.The diagnostic specificity of the AD[employer] Centaur 1/O/2 Enhanced assay in the low risk population was 99.90% (6052/6058) with a 95% confidence interval of 99.78 to 99.96%. 23 [id number] 24 Therapeutic target for the treatment of diabetes mellitus patients is <7% HBA1C, and in selective patients <6.0%. Please refer to [place] Diabetes Association diabetic care guidelines for further information. 25 [id number] 26 Warning: A positive result is not useful for establishing a diagnosis of syphilis. In most situations, such a result may reflect a prior treated infection; a negative result can exclude a diagnosis of syphilis except for incubating or early primary disease. 27 SEE RESULT BELOW Name: MULUGETA WEAVER : [address]: Santino Michel [facility] Acct: [id number] Unit: [id number] AGE: 31 Location: [facility] Re12/15/16 SEX: F Status: REG REF SPEC: [id number] JENNIFER: 12/15/16-[address]: Santino Michel [facility] REQ: [id number] RECD: 12/15/16 STATUS: COMP _ SOURCE: URINE SPDESC: ORDERED: Urine Culture COMMENTS: [id number] Urine Source: Random Procedure Result Reported Site Urine Culture Final 12/16/16- 1255 ML No growth of clinically significant organisms * ML - MAIN LAB ([facility]) . END OF REPORT * ML=Testing performed at Main Lab DEPARTMENT OF PATHOLOGY, [address] [place] [address] Fito Mott M.D. Director [facility] # [id number] 28 SEE RESULT BELOW Name: MULUGETA WEAVER : [address]: Kira Jarrett CNM Acct: [id number] Unit: [id number] AGE: 31 Location: [facility] Re11/13/16 SEX: F Status: REG REF SPEC: [id number] JENNIFER: 11/13/[address]: Kira Jarrett [facility] REQ: [id number] RECD: 11/13/16 STATUS: COMP _ SOURCE: URINE SPDESC: ORDERED: Urine Culture COMMENTS: [id number] Urine Source: Random Procedure Result Reported Site Urine Culture Final 11/15/16- 0958 ML No Growth (<1,000 CFU/mL) * ML - MAIN LAB ([facility]) . END OF REPORT * ML=Testing performed at Main Lab DEPARTMENT OF PATHOLOGY, [address] [place] [address] Fito Mott M.D. Director [facility] # [id number] 29 SEE RESULT BELOW Name: MULUGETA WEAVER : [address]: Leora Galindo Acct: [id number] Unit: [id number] AGE: 30 Location: [facility] Re04/10/16 SEX: F Status: REG REF SPEC: [id number] JENNIFER: 04/10/16-[address] [facility] [address]: Leora Galindo REQ: [id number] RECD: 04/10/16 STATUS: SOUT _ ORDERED: IMAGE ANALYSIS, HPV/Thin Prep COMMENTS: [id number] FINAL DIAGNOSIS Negative for Intraepithelial lesion or Malignancy A. Ectocervical/Endocervical Specimen Adequacy: Satisfactory of evaluation Transformation zone component identified Patient Information: HPV: High risk HPV RNA testing regardless of pap results. Actual Specimen Date: 04/10/16 Last Menstrual Date: 04/12/16 Spec Date if unknown: unknown Date Time Test Result Flag (u) Normal Range 04/10/16 09 HPV RNA Negative Negative The high-risk HPV types detected by the assay include: 16, 18, 31, 33, 35, 39, 45, 51, 52, 56, 58, 59, 66, and 68. Signed (signature on file) MARCUS Banks (ASCP) 04/11 3678 This Pap test was evaluated with the assistance of the ThinPrep Test Imaging System. Due to cytologic findings at the engineering specialist microscope, comprehensive manual rescreening by a News Photographer may be required. The Pap Smear is a screening test designed to aid in the detection of premalignant and malignant conditions of the uterine cervix. It is not a diagnostic procedure and should not be used as the sole means of detecting cervical cancer. Both false- positive and false- negative reports do occur. Depending on your risk status, a Pap smear should be obtained and evaluated every 1-3 years. END OF REPORT * ML=Testing performed at Main Lab DEPARTMENT OF PATHOLOGY, [address] [place] [address] Fito Mott M.D. Director [facility] # [id number] 30 The high-risk HPV types detected by the assay include: 16, 18, 31, 33, 35, 39, 45, 51, 52, 56, 58, 59, 66, and 68. Procedures Date Code Description Status 07/02/2017 26080 Obstetric Care Routine Completed 06/14/2017 95452 Echography Uterus Limited Completed 03/05/2017 68524 Echography Uterus Complete Completed 01/16/2017 13607 Echography Uterus Follow-Up Or Repeat Completed 12/15/2016 95251 OB Ultrasound First Trimester Completed Encounters Type Date Location Provider Dx Diagnosis Office Visit 07/02/2018 [facility] Ari Oleary MD N83.201 Unspecified ovarian 9:45a cyst, right side Office Visit 03/21/2018 [facility] Leora Anderson, Z01.419 Encntr for boarder steam exam 9:40a ANP-C (general) (routine) w/o abn findings Office Visit 11/13/2016 [facility] Kira Jarrett, R10.30 Lower abdominal pain, 11:20a CNM unspecified Office Visit 04/10/2016 [facility] Leora Anderson, Z01.419 Encntr for boarder steam exam 9:20a ANP-C (general) (routine) w/o abn findings Office Visit 12/30/2015 [facility] Leora Anderson, [id number] Encounter for 9:20a ANP-C surveillance of other contraceptives Plan of Treatment Future Appointment(s):08/05/2018 1:30 pm - Ari Oleary MD at [facility] [id number] 1:00 pm - Ultrasounds at [facility]11/13/2016 - Kira Jarrett, [id number] Lower abdominal pain, unspecifiedComments:Your urine dip today is not suspicious for UTI but we will send a urine culture to be certain. Your pain was not reproduced on exam today and as discussed I think it might be a normal discomfort of early . I will follow up based on the results of the culture or please call for worsening symptoms, pain or fever. Return at your scheduled new OB visit.
[2018-07-20 21:35] VITALS: BP 107/61
--- NOTE | 2018-07-20 21:39 | UC ---
Skin Complaint HPI - HPI Summary HPI Summary: tick removed from back of right leg today she thinks it may have been on longer than 24 hours--- - History of Current Complaint Chief Complaint: UCSkin Time Seen by Provider: 07/20/18 21:33 Stated Complaint: TICK BITE Hx Obtained From: Patient Hx Last Menstrual Period: 09/09/16 ?: No Onset/Duration: Sudden Onset, Resolved Pain Intensity: 0 Pain Scale Used: 0-10 Numeric Location: Discrete Aggravating Factor(s): Nothing Alleviating Factor(s): Nothing Associated Signs & Symptoms: Positive: Negative Related History: Insect Bite/Sting - Allergy/Home Medications Allergies/Adverse Reactions: Allergies Allergy/AdvReac Type Severity Reaction Status Date / Time No Known Allergies Allergy Verified 07/20/18 21:36 Home Medications: Home Medications Oral Control 1 tab PO DAILY 07/20/18 [History Confirmed 07/20/18] PMH/Surg Hx/FS Hx/Imm Hx Previously Healthy: Yes - Surgical History Surgical History: Yes Surgery Procedure, Year, and Place: adenoidectomy, ear tubes as kid - Family History Known Family History: Negative: Cardiac Disease, Hypertension, Diabetes - Social History Occupation: Employed Full-time Lives: With Family Alcohol Use: None Alcohol Amount: occasionally prior to Substance Use Type: None Smoking Status (MU): Never Smoked Tobacco - Immunization History Most Recent Influenza Vaccination: 2017 Most Recent Pneumonia Vaccination: Unknown Review of Systems All Other Systems Reviewed And Are Negative: Yes Constitutional: Positive: Negative Skin: Positive: Other - tick bite back of right leg Eyes: Positive: Negative ENT: Positive: Negative Respiratory: Positive: Negative Cardiovascular: Positive: Negative Gastrointestinal: Positive: Negative Genitourinary: Positive: Negative Motor: Positive: Negative Neurovascular: Positive: Negative Musculoskeletal: Positive: Negative Neurological: Positive: Negative Psychological: Positive: Negative Is Patient Immunocompromised?: No Physical Exam Triage Information Reviewed: Yes Appearance: Well-Appearing, No Pain Distress, Well-Nourished Vital Signs: Initial Vital Signs Temp 98.3 F 07/20/18 21:30 Pulse 73 07/20/18 21:30 Resp 16 07/20/18 21:30 BP 107/61 07/20/18 21:30 Pulse Ox 100 07/20/18 21:30 Vital Signs Reviewed: Yes Eye Exam: Normal Eyes: Positive: Conjunctiva Clear ENT Exam: Normal ENT: Positive: Normal ENT inspection, Hearing grossly normal. Negative: Trismus , Muffled voice, Hoarse voice Dental Exam: Normal Neck exam: Normal Neck: Positive: Supple, Nontender Respiratory Exam: Normal Respiratory: Positive: Normal breath sounds, No respiratory distress Cardiovascular Exam: Normal Cardiovascular: Positive: RRR, No Murmur, Brisk Capillary Refill Musculoskeletal Exam: Normal Musculoskeletal: Positive: Strength Intact, ROM Intact, No Edema Neurological Exam: Normal Neurological: Positive: Alert, Muscle Tone Normal Psychological Exam: Normal Skin Exam: Other Skin: Positive: Other - small amont of redness at site of tick bite- Course/Dx - Course Course Of Treatment: education provided regarding the limitations of pep for lyme,, patient verbalizes under standing will give doxy 200. education regarding s/s of lyme patient will follow with pcp - Diagnoses Provider Diagnosis: Risk of exposure to Lyme disease, Tick bite of right lower leg Discharge - Sign-Out/Discharge Documenting (check all that apply): Patient Departure All imaging exams completed and their final reports reviewed: No Studies - Discharge Plan Condition: Stable Disposition: HOME Patient Education Materials: Lyme Disease (ED), Tick Bite (ED) Referrals: Lizzie Land MD [Primary Care Provider] - If Needed - Billing Disposition and Condition Condition: STABLE Disposition: Home
[2018-07-20] MEDS ORDERED: DOXYcycline CAP(*) 100 MG PO ONE (21:45)
== END 2018-07-20 22:04 | disposition home or self-care (01) ==
LOC: UCEAST 21:26
DX: S80.861A Insect bite (nonvenomous), right lower leg, initial encounter (principal); Z20.818 Contact with and (suspected) exposure to other bacterial communicable diseases; W57.XXXA Bitten or stung by nonvenomous insect and other nonvenomous arthropods, initial encounter; Y92.9 Unspecified place or not applicable
CPT/HCPCS: 99212; A9270-GY; G0463

== ENCOUNTER 2021-06-07 08:47 | Inpatient (IN) ==
[2021-06-07 10:18] LABS: Hematocrit 36 % (35-47); Mean Corpuscular HGB Conc 34 g/dL (31-36); Mean Corpuscular Hemoglobin 29 pg (27-31); Mean Corpuscular Volume 86 fL (80-97); Mean Platelet Volume 11.4 fL (7.4-10.4); Platelet Count 142 10^3/uL (150-450); Red Blood Count 4.13 10^6 /uL (3.70-4.87); Red Cell Distribution Width 13 % (10-15); White Blood Count 6.4 10^3/uL (3.5-10.8)
[2021-06-07 10:28] LABS: Urine Benzodiazepine Screen None Detected (None Detect); Urine Cannabinoids Screen None Detected (None Detect); Urine Opiates Screen None Detected (None Detect)
[2021-06-07] MEDS ORDERED: Buffered Lidocaine 1% SYRIN 1 ml INTRADERM ONE (10:57)
[2021-06-07] MEDS ORDERED: Lactated Ringers 1000 ml BAG 1,000 ML IV ONE (10:57)
[2021-06-07] MEDS ORDERED: Lactated Ringers 1000 ml BAG 1,000 ML IV SCH ×2 (11:00→17:00)
[2021-06-07] MEDS ORDERED: Oxytocin in LR 20 UNITS/1,000 ML BAG IVPB SCH ×2 (11:00→17:00)
[2021-06-07] MEDS ORDERED: Witch Hazel PAD JAR TOPICAL PRN (16:22)
[2021-06-07] MEDS ORDERED: Dibucaine 1% OINT 28.35 GM TUBE PR PRN (16:22)
[2021-06-07] MEDS ORDERED: Glycerin ADULT 2.4 gm SUPP PR PRN (16:22)
[2021-06-07] MEDS ORDERED: Lidocaine 1% VIAL 10 MG/ML VIAL ONE (21:08)
[2021-06-08 06:55] LABS: ABS Eosinophils 0.1 10^3/ul (0-0.6); ABS Lymphocytes 1.2 10^3/ul (1.0-4.8); ABS Monocytes 0.8 10^3/ul (0-0.8); ABS Neutrophils 8.1 10^3/ul (1.5-7.7); Hematocrit 35 % (35-47); Hemoglobin 12.2 g/dL (12.0-16.0); Lymphocyte % 11.6 %; Mean Corpuscular HGB Conc 35 g/dL (31-36); Mean Corpuscular Hemoglobin 30 pg (27-31); Mean Corpuscular Volume 85 fL (80-97); Mean Platelet Volume 11.1 fL (7.4-10.4); Platelet Count 122 10^3/uL (150-450); Red Blood Count 4.07 10^6 /uL (3.70-4.87); Red Cell Distribution Width 13 % (10-15); White Blood Count 10.3 10^3/uL (3.5-10.8)
[2021-06-09 08:36] VITALS: BP 110/75
== END 2021-06-09 12:05 | disposition home or self-care (01) | DRG 560 ==
LOC: MCHOBOUT 08:47 → MCHOB 10:09
PROVIDERS: ADMIT Obstetrics & Gynecology; ATTEND Obstetrics & Gynecology